=== PATIENT | male | born 1960 | race Caucasian/White ===

== ENCOUNTER → 2021-04-08 | Outpatient (CLI) | payer OTHER | LOC: ORTHO 11:35 | PROVIDERS: ATTEND Orthopaedic Surgery | DX: M16.11 Unilateral primary osteoarthritis, right hip (principal); Z86.14 Personal history of Methicillin resistant Staphylococcus aureus infection | CPT/HCPCS: 99203 ==

== ENCOUNTER → 2021-04-08 | Outpatient (CLI) | payer OTHER | LOC: LAB 11:55 | PROVIDERS: ATTEND Orthopaedic Surgery | DX: Z86.14 Personal history of Methicillin resistant Staphylococcus aureus infection (principal); Z11.2 Encounter for screening for other bacterial diseases | CPT/HCPCS: 87081 ==

== ENCOUNTER 2021-04-29 09:59 | Outpatient (CLI) | payer OTHER ==
[~2021-04-29] VITALS: Ht 175.3 cm; Wt 132.8 kg
[2021-04-29 10:09] VITALS: BP 143/81
[2021-04-29 10:49] LABS: BILIRUBIN,URINE NEGATIVE (NEGATIVE); CLARITY,URINE CLEAR; COLOR,URINE YELLOW; GLUCOSE, URINE (UA) NEGATIVE (NEGATIVE); KETONES,URINE NEGATIVE (NEGATIVE); LEUKOCYTE ESTERASE ,URINE NEGATIVE (NEGATIVE); NITRITE,URINE NEGATIVE (NEGATIVE); PH,URINE 5.5 (5-9); PROTEIN,URINE NEGATIVE (NEGATIVE)
[2021-04-29 10:51] LABS: BASOPHILS % (AUTO) 0 % (0-10); EOSINOPHILS # (AUTO) 0.4 10^3/uL (0.0-0.3); EOSINOPHILS % (AUTO) 8 % (0-10); HEMATOCRIT 42 % (40-54); HEMOGLOBIN 14.2 g/dL (13.3-17.7); LYMPHOCYTES % (AUTO) 21 % (12-44); MEAN CORPUSCULAR HEMOGLOBIN 30 pg (25-34); MEAN CORPUSCULAR HGB CONC 34 g/dL (32-36); MEAN CORPUSCULAR VOLUME 90 fL (80-99); MEAN PLATELET VOLUME 9.4 fL (9.0-12.2); MONOCYTES # (AUTO) 0.4 10^3/uL (0.0-1.0); MONOCYTES % (AUTO) 8 % (0-12); NEUTROPHILS # (AUTO) 2.9 10^3/uL (1.8-7.8); NEUTROPHILS % (AUTO) 62 % (42-75); PLATELET COUNT 235 10^3/uL (130-400); WHITE BLOOD COUNT 4.7 10^3/uL (4.3-11.0)
[2021-04-29 11:05] LABS: POTASSIUM 3.6 MMOL/L (3.6-5.0)
[2021-04-29 11:06] LABS: AMORPHOUS SEDIMENT,UR RARE AMOR URATES /LPF; BACTERIA,URINE NEGATIVE /HPF; CALCIUM 9.1 MG/DL (8.5-10.1); WBC,URINE RARE /HPF
[2021-04-29 11:11] LABS: CREATININE SERUM 0.84 MG/DL (0.60-1.30)
[2021-04-29] MEDS ORDERED: ELDE1CAP PO (11:13)
[2021-04-29] MEDS ORDERED: ASCO-262 PO (11:13)
[2021-04-29] MEDS ORDERED: CHOL500044 PO (11:13)
[2021-04-29] MEDS ORDERED: ZINC50TA11 PO (11:13)
[2021-04-29] MEDS ORDERED: LISI40TA9 PO (11:13)
[2021-04-29] MEDS ORDERED: OMG1KC PO (11:13)
--- NOTE | 2021-04-29 12:23 | Diagnostic Imaging Report ---
INDICATION: Preoperative screening. PA and lateral views were obtained. FINDINGS: The heart size, mediastinal configuration, and pulmonary vascularity are within normal limits. There is no pleural effusion, pneumothorax, or pneumonia. The osseous structures are unremarkable. IMPRESSION: No acute cardiopulmonary abnormality. Dictated by: Dictated on workstation # [id number]
== END 2021-04-29 11:31 | disposition home or self-care (01) ==
LOC: PREOP 09:59
PROVIDERS: ATTEND Orthopaedic Surgery
DX: Z01.810 Encounter for preprocedural cardiovascular examination (principal); M16.11 Unilateral primary osteoarthritis, right hip
CPT/HCPCS: 36415; 71046; 80048; 81000; 85025; 86850; 86900; 86901; 87081; 93005

== ENCOUNTER → 2021-04-29 | Outpatient (CLI) | payer OTHER ==
[~2021-04-29] MED LIST: ASCO-262 PO; CHOL500044 PO; ELDE1CAP PO; LISI40TA9 PO; OMG1KC PO; ZINC50TA11 PO
--- NOTE | 2021-04-29 14:36 | Diagnostic Imaging Report ---
INDICATION: Right hip pain COMPARISON: None. FINDINGS: 2 views right hip demonstrate severe degenerative joint disease. There is no fracture or dislocation. IMPRESSION: Severe degenerative joint disease. Dictated by: Dictated on workstation # [id number]
== END ==
LOC: ORTHO 11:22
PROVIDERS: ATTEND Orthopaedic Surgery
DX: M16.11 Unilateral primary osteoarthritis, right hip (principal)
CPT/HCPCS: 73502

== ENCOUNTER 2021-05-10 06:16 | Inpatient (IN) | payer OTHER ==
[2021-05-10] VITALS (11 sets, daily range): BP systolic 94–142; BP diastolic 56–82
[~2021-05-10] VITALS: Ht 175 cm; Wt 132.8 kg
[2021-05-10] MEDS ORDERED: ceFAZolin INJECTION 3,000 MG in NS (IVPB) 100 ML IV ONE (06:30)
[2021-05-10] MEDS ORDERED: ONDANSETRON 4 MG/2 ML (SDV) Z0FRAN ONE (07:16)
[2021-05-10] MEDS ORDERED: ROCURONIUM 10 MG/ML 5 ML SYRINGE IV ONE ×2 (07:16→11:45)
[2021-05-10] MEDS ORDERED: proPOfol 200 MG/20 ML (DIPRIVAN) VIAL IV ONE (07:16)
[2021-05-10] MEDS ORDERED: fentaNYL INJ 100 MCG/2 ML AMP ONE ×2 (07:17→09:59)
[2021-05-10] MEDS: LACTATED RINGERS 1,000 ML IV PRN ×4 (07:17→12:35)
[2021-05-10] MEDS ORDERED: LIDOCAINE PF 2% 5 ML (XYLOCAINE) VIAL ONE (07:17)
[2021-05-10] MEDS ORDERED: MIDAZOLAM 2 MG/2 ML (VERSED) VIAL ONE (07:17)
[2021-05-10] MEDS ORDERED: SODIUM CHLORIDE 0.9% IRRIGATIO 150 ML, TRANEXAMIC ACID INJECTION 3,000 MG IR ONE ×2 (08:15)
[2021-05-10] MEDS ORDERED: HYDROmorphone 2 MG/ML VIAL (DILAUDID) ONE (11:20)
[2021-05-10] MEDS ORDERED: ceFAZolin INJECTION 3,000 MG ONE (11:59)
[2021-05-10] MEDS ORDERED: BUPIVACAINE 0.25% 30 ML (SENSORCAINE) VIAL ONE (12:25)
[2021-05-10] MEDS ORDERED: GLYCOPYRROLATE 0.2 MG/ML (ROBINUL) 2 ML VIAL ONE (12:33)
[2021-05-10] MEDS ORDERED: NEOSTIGMINE 3 MG/3 ML VIAL ONE (12:33)
[2021-05-10] MEDS ORDERED: NALOXONE 0.4 MG/ML 1 ML (NARCAN) VIAL IV PRN (13:00)
[2021-05-10] MEDS ORDERED: morphine INJ 4 MG/ML 1 ML (VIAL/SYRINGE) IV PRN (13:00)
--- NOTE | 2021-05-10 13:06 | Operative Report - Ortho ---
Operative Report Surgeon (s)/Scout (s) Surgeon DOUGLAS VALDIVIA MD Scout n/a Pre-Operative Diagnosis Right Hip Primary Osteoarthritis Post-Operative Diagnosis same Operative Report Date of Procedure: May 10, 2021 Name of Procedure Performed: Right total hip arthroplasty Description & Findings After obtaining informed consent and marking the patient in the preoperative holding area, the patient did receive antibiotics and was taken to the operating room. General anesthesia was induced and patient was positioned in the lateral decubitus position with the right side up. Right lower extremity was prepped and draped in the usual sterile fashion. Surgical timeout was taken. Posterolateral approach was utilized. Capsule and external rotators were taken down in one layer. Hip was difficult to dislocate. A double osteotomy technique was used to remove the femoral head from the acetabulum. Acetabulum was exposed. Labrum and soft tissue was removed from the acetabulum. Sequential reaming was began beginning with a 50 mm reamer and reaming to a 56 mm. 56 mm trial was placed and had good fit. Trial was removed and the acetabulum was lavaged with normal saline; a 56 mm cup was impacted into place and had excellent press fit. A trial liner was put into place. Attention was turned to the femoral side, a Pitzi cutter osteotome was used to removed bone near the greater trochanter. Canal finder was inserted followed by the lateralizing reamer. Sequential broaching was began with a 0 and he was broached to a 4. Calcar planer was used. Trial 127 degree neck and -2.5 mm head were put into place. Hip was located and was found to have grossly equal leg lengths, stable in position of sleep, and stable in flexion and internal rotation. This was accepted. Hip was dislocated. Acetabulum was exposed. Trial line was removed and a polyethylene liner was locked into place; freer was used to check the locking mechanism. Attention was turned back to the femur, broach was removed and the canal was irrigated. A size 4 Accolade II was impacted into place and set at the same level as the broach. A -2.5 mm ceramic head was impacted onto the covarrubias taper of the stem. Hip was once again located and found to have grossly equal leg lengths with stability in position of sleep as well as flexion and internal rotation. A dilute betadine soak was performed followed by irrigation. Tranexamic acid was applied for hemostasis. The fascial layer was closed with #1 Ticron. The subcutaneous layer was closed with 2-0 Vicryl. Skin was closed with amber. Wound was dressed with xeroform, 4x4s, ABD, and paper tape. Patient was placed in abduction pillow and transferred to his hospital bed without difficulty and was stable to the recovery room. Anesthesia Type General Estimated Blood Loss 600 mL Specimen(s) collected/removed None DOUGLAS VALDIVIA MD May 10, 2021 13:06
[2021-05-10] MEDS ORDERED: PHENYLEPHRINE 100 MCG/ML 10 ML (ANESTHESIA) SYR ONE (13:26)
[2021-05-10] MEDS ORDERED: SEVOFLURANE (ULTANE) 15 ML INHAL SOLN ONE (13:26)
--- NOTE | 2021-05-10 13:35 | Diagnostic Imaging Report ---
INDICATION: Hip pain. FINDINGS: AP view of the pelvis shows postoperative changes from bilateral total hip arthroplasties. There is no evidence of loosening. Prosthesis appears secured. There is no acute fracture seen. IMPRESSION: Good alignment of the hips following joint arthroplasties. Dictated by: Dictated on workstation # [id number]
--- NOTE | 2021-05-10 14:09 | Anesthesia-General Post-Op ---
General Patient Condition Mental Status/LOC: Same as Preop Cardiovascular: Satisfactory Nausea/Vomiting: Absent Respiratory: Satisfactory Pain: Controlled Complications: Absent Post Op Complications Complications None Follow Up Care/Instructions Patient Instructions None needed. Anesthesia/Patient Condition Patient Condition Patient is doing well, no complaints, stable vital signs, no apparent adverse anesthesia problems. No complications reported per nursing. CORA KHAN CRNA May 10, 2021 14:09
[2021-05-10] MEDS ORDERED: fentaNYL INJ 100 MCG/2 ML AMP IVP ONE (14:15)
[2021-05-10] MEDS ORDERED: ONDANSETRON 4 MG/2 ML (SDV) Z0FRAN IVP PRN (14:15)
[2021-05-10] MEDS ORDERED: morphine INJ 10 MG/ML 1ML (SYR OR VIAL) IVP ONE (14:15)
[2021-05-10] MEDS ORDERED: morphine INJ 4 MG/ML 1 ML (VIAL/SYRINGE) ONE (14:29)
[2021-05-10] MEDS ORDERED: IBUP-2473 PO (15:01)
[2021-05-10] MEDS: ceFAZolin 2 GM IV Premixed 50 ML IV SCH ×2 (17:12→22:50)
[2021-05-10] MEDS: ASPIRIN E.C. 81 MG (ECOTRIN) TAB PO SCH (19:32)
[2021-05-10] MEDS: CELECOXIB 100 MG (CeleBREX) CAP PO SCH (19:32)
[2021-05-11 04:05] VITALS: BP 92/63
[2021-05-11 06:00] LABS: HEMOGLOBIN 11.3 g/dL (13.3-17.7)
[2021-05-11] MEDS: ASCORBIC ACID (VIT C) 500 MG TABLET PO SCH (06:03)
[2021-05-11 07:43] VITALS: BP 101/59
[2021-05-11] MEDS: CELECOXIB 100 MG (CeleBREX) CAP PO SCH ×2 (08:17→18:43)
[2021-05-11] MEDS: ceFAZolin 2 GM IV Premixed 50 ML IV SCH (08:17)
[2021-05-11] MEDS: ASPIRIN E.C. 81 MG (ECOTRIN) TAB PO SCH ×2 (08:17→20:42)
[2021-05-11] MEDS: lisINopril 40 MG (PRINIVIL) TABLET PO SCH (08:17)
[2021-05-11] MEDS: VITAMIN D3 125 MCG (5,000 UNITS) CAPSULE PO SCH (08:17)
--- NOTE | 2021-05-11 08:34 | Progress Note - Ortho ---
Progress Note Subjective Date of Exam 05/11/21 Chief Complaint Right Hip Pain HPI/Events since last exam POD #1 Right Total Hip Arthroplasty doing well, pain controlled, has walked in the [place] this AM Review of Systems not obtained Allergies: Coded Allergies: adhesive tape (Verified Allergy, Unknown, Rash, 04/29/21) Home Meds Reported Medications Ibuprofen (Ibuprofen) 200 Mg Tablet, 600 MG PO Q6H PRN for PAIN-MILD (1-4), TAB 05/10/21 Zinc Gluconate (Zinc) 50 Mg Tablet, 50 MG PO DAILY, TAB 04/29/21 Cholecalciferol (Vitamin D3) (Vitamin D3) 125 Mcg Tablet, 125 MCG PO DAILY, TAB 04/29/21 Ascorbate Calcium (Vitamin C) 500 Mg Tablet, 500 MG PO DAILY, TAB 04/29/21 Lisinopril (Lisinopril) 40 Mg Tablet, 40 MG PO DAILY, TAB 04/29/21 [place] 3 Polyunsat Fatty Acids (Fish Oil 1,000 mg Capsule) 1,000 Mg Cap, 1000 MG PO DAILY, CAP 04/29/21 Elderberry Fruit and Flower (Black Elderberry 575 mg Cap) 1 Each Capsule, 1 EACH PO DAILY, CAP 04/29/21 Objective Exam Right Hip: Dressing C/D/I, +DF of ankle, no s/s of DVT Vital Signs Vital Signs Date Time Temp Pulse Resp B/P (MAP) Pulse Ox O2 Delivery O2 Flow Rate FiO2 05/11/21 07:43 36.9 66 18 101/59 (73) 95 Room Air 05/11/21 04:05 36.8 73 18 92/63 (73) 95 Room Air 05/10/21 23:39 36.9 77 18 103/56 (72) 92 Room Air 05/10/21 21:00 37.3 78 18 112/58 (76) 93 Room Air 05/10/21 19:40 Room Air 05/10/21 17:09 Room Air 05/10/21 16:05 36.6 75 18 129/68 (88) 94 Room Air 05/10/21 14:52 35.4 77 18 118/72 (87) 95 Room Air 05/10/21 13:45 Room Air 05/10/21 13:45 36.2 16 138/77 (97) 97 Room Air 05/10/21 13:40 18 136/76 (96) 97 Nasal Cannula 2 05/10/21 13:30 18 130/78 (95) 94 OxyMask 2 05/10/21 13:30 OxyMask 2 05/10/21 13:20 16 142/82 (102) 98 OxyMask 3 05/10/21 13:15 OxyMask 6 05/10/21 13:10 16 127/79 (95) 98 OxyMask 6 05/10/21 13:05 OxyMask 15 05/10/21 13:00 16 109/63 (78) 100 OxyMask 15 05/10/21 12:51 OxyMask 15 05/10/21 12:51 36.5 16 94/64 (74) 97 OxyMask 15 I & O 05/11/21 07:00 Intake Total 4095 ml Output Total 1125 ml Balance 2970 ml Lab Results Laboratory Tests 05/11/21 05:10: Hemoglobin 11.3L, Hematocrit 35L Imaging AP pelvis from 05/10/21 reviewed from PACS and demonstrated right total hip arthroplasty components to be in good position without complication, prior left total hip arthroplasty intact as well Assessment and Plan Assessment Post Op Problem List Post Op Plan Cont PT/OT DVT prophylaxis Plan for home with home health on Final Diagonsis Z09 Post Op Level of the visit: Level 3 (global) DOUGLAS VALDIVIA MD May 11, 2021 08:34
[2021-05-11] MEDS ORDERED: NON-FORMULARY MEDICATION 1 EA EA (Ascorbate Calcium (Vitamin C) 500 MG) PO SCH (09:00)
--- NOTE | 2021-05-11 09:55 | Physical Therapy Evaluation ---
PT Evaluation-General Medical Diagnosis Admission Date May 10, 2021 at 06:16 Medical Diagnosis: right THR Onset Date: May 10, 2021 Therapy Diagnosis Therapy Diagnosis: debility/weakness Weight Bear Status Right Lower Extremity: Right Weight Bearing/Tolerated Left Lower Extremity: Left Full Weight Bearing Posterolateral dislocation precautions Referral Physician: Josué Reason for Referral: Evaluation/Treatment Medical History Additional Medical History left THR Current History s/p elective right THR Reviewed History: Yes Social History Home: Single Level Current Living Status: Spouse Prior Prior Level of Function SCALE: Activities may be completed with or without assistive devices. 5-Dxovlmjryx-tsfqmzs completes the activity by him/herself with no assistance from a helper. 5-Set-up or Clean-up Assistance-helper sets up or cleans up; patient completes activity. [place] assists only prior to or following the activity. 4-Supervision or Touching Assistance-helper provides verbal cues and/or touching/steadying and/or contact guard assistance as patient completes activity. Assistance may be provided throughout the activity or intermittently. 3-Partial/Moderate Assistance-helper does LESS THAN HALF the effort. [place] lifts, holds or supports trunk or limbs, but provides less than half the effort. 2-Substantial/Maximal Assistance-helper does MORE THAN HALF the effort. [place] lifts or holds trunk or limbs and provides more than half the effort. 0-Mcspeifgr-wjmpps does ALL the effort. Patient does none of the effort to complete the activity. Or, the assistance of 2 or more helpers is required for the patient to complete the activity. If activity was not attempted, code reason: 7-Patient Refused. 9-Not Applicable-not attempted and the patient did not perform the activity before the current illness, exacerbation or injury. 10-Not Attempted due to Environmental Limitations-(lack of equipment, weather restraints, etc.). 88-Not Attempted due to Medical Conditions or Safety Concerns. Bed Mobility: 6 Transfers (B,C,W/C): 6 Gait: 6 Stairs: 6 Indoor Mobility (Ambulation): Independent Stairs: Independent Prior Devices Use: None PT Evaluation-Current Subjective Patient agrees to PT. Pain Numeric Pain Scale: 5-Moderate Pain Location: Right Location Body Site: Hip Pain Description: Acute Objective Patient Orientation: Normal For Age Attachments: Love Catheter ROM/Strength ROM Lower Extremities right hip precautions/left LE WFL Strength Lower Extremities right LE 3+/5 grossly/left LE 5/5 grossly Integumentary/Posture Integumentary refer to nursing notes Bladder Incontinence: Love Cath Posture WFL Neuromuscular (Tone, Coordination, Reflexes) grossly intact Sensory Vision: Functional Hearing: Functional Transfers Roll Left to Right (QC): 6 Lying to Sitting/Side of Bed(Q: 6 Sit to Stand (QC): 4 Chair/Fob-dm-Mbqla Xfer(QC): 4 Gait Does the Patient Walk?: Yes Mode of Locomotion: Walk Anticipated Mode of Locomotion: Walk Walk 10 feet (QC): 4 Walk 50 ft with 2 Turns(QC): 4 Walk 150 ft (QC): 4 Distance: 200' Gait Assistive Device: FWW Comments/Gait Description steady, functional gait sequence Wheelchair Training Does the Pt Use a Wheelchair?: No Balance Sitting Static: Normal Sitting Dynamic: Normal Standing Static: Normal Standing Dynamic: Normal Assessment/Needs 61 y.o. male, will be seen short term by skilled PT to address functional strength and mobility to ensure safe return to home at maximum LOF. Rehab Potential: Good PT Assignment Clerk Goals Assignment Clerk Goals PT Custodial Goals Time Frame: May 14, 2021 Roll Left & Right (QC): 6 Sit to Lying (QC): 6 Lying-Sitting on Side/Bed(QC): 6 Sit to Stand (QC): 6 Chair/Kgp-gu-Vaxlo Xfer(QC): 6 Toilet Transfer (QC): 6 Walk 10 feet (QC): 6 Walk 50ft with 2 Turns (QC): 6 Walk 150 ft (QC): 6 Walking 10ft on Uneven Surface: 6 1 Step (curb) (QC): 6 4 Steps (QC): 6 PT Plan Treatment/Plan Treatment Plan: Continue Plan of Care Treatment Plan: Bed Mobility, Education, Functional Activity Rafat, Functional Strength, Gait, Safety, Therapeutic Exercise, Transfers Treatment Duration: May 14, 2021 Frequency: 7 times per week Estimated Hrs Per Day: .5 hour per day Patient and/or Family Agrees t: Yes Discharge Recommendations Therapy Discharge Recommendati: Home & Family Time/GCodes Time In: 730 Time Out: 758 Total Billed Treatment Time: 28 Total Billed Treatment 1 visit EVModC 12 min GT 16 min ANNE REED PT May 11, 2021 09:55
[2021-05-11 11:31] VITALS: BP 120/56
--- NOTE | 2021-05-11 11:59 | Occupational Therapy Eval ---
OT Evaluation-General/PLF Medical Diagnosis Admission Date May 10, 2021 at 06:16 Medical Diagnosis: right THR Onset Date: May 10, 2021 Therapy Diagnosis Therapy Diagnosis: decreased ADL Status Precautions Comments hip precautions Weight Bear Status Weight Bearing Restriction: Weight Bearing/Tolerated Location Restriction: R LE Referral Physician: Josué Referral Reason: Evaluation/Treatment Medical History Current History s/p R MANNY 05/10/21 Social History Home: Single Level Current Living Status: Spouse ADL-Prior Level of Function SCALE: Activities may be completed with or without assistive devices. 7-Cmdwcestdm-ojbapdt completes the activity by him/herself with no assistance from a helper. 5-Set-up or Clean-up Assistance-helper sets up or cleans up; patient completes activity. [place] assists only prior to or following the activity. 4-Supervision or Touching Assistance-helper provides verbal cues and/or touching/steadying and/or contact guard assistance as patient completes activity. Assistance may be provided throughout the activity or intermittently. 3-Partial/Moderate Assistance-helper does LESS THAN HALF the effort. [place] lifts, holds or supports trunk or limbs, but provides less than half the effort. 2-Substantial/Maximal Assistance-helper does MORE THAN HALF the effort. [place] lifts or holds trunk or limbs and provides more than half the effort. 8-Rdvjkqdxz-vwumoy does ALL the effort. Patient does none of the effort to complete the activity. Or, the assistance of 2 or more helpers is required for the patient to complete the activity. If activity was not attempted, code reason: 7-Patient Refused. 9-Not Applicable-not attempted and the patient did not perform the activity before the current illness, exacerbation or injury. 10-Not Attempted due to Environmental Limitations-(lack of equipment, weather restraints, etc.). 88-Not Attempted due to Medical Conditions or Safety Concerns. ADL PLOF Comments Pt reports IND with ADLs at PLOF. He has a walk in shower, shower chair available. He owns AE for LE dressing, and is familiar with them due to having his L hip replaced in the past. Self Care: Independent Functional Cognition: Independent DME/Equipment: Bath Chair, Shower OT Current Status Subjective Pt laying in bed, agreeable to OT evaluation/tx. Mental Status/Objective Patient Orientation: Person, Place, Time, Situation Current Upper Extremity ROM WFL, BUE shoulder flexion to approx 160 degrees Upper Extremity Coordination WFL Upper Extremity Sensation WFL Upper Extremity Strength grossly 4/5 ADL-Treatment Eating (QC): 6 (per pt report) Oral Hygiene (QC): 5 (based on clincial judgement.) Toileting Hygiene (QC): 7 Other Treatments Pt in bed, OT educated pt on purpose and benefit of OT, he verbalized understanding. Pt provided information about PLOF and home set up, and part icipated in UE screen. Pt declined ADLs at this time, agreeable to BUE exercises in order to increase strength, and activity tolerance. Pt completed x10 reps each of the following: shoulder flexion, elbow flexion, elbow extension, horizontal abduction. Pt encouraged to complete exercises throughout the day,he verbalized understanding. Per PT evaluation, pt ambulated 200' with FWW QC score 4, he is independent with rolling, and lying to sit side of bed. Requires QC 4 for sit to stand and bed to chair transfer.Post tx, pt in bed, call light in reach and all needs met. Education OT Patient Education: Correct positioning, Energy conservation, Exercise program, Modified ADL techniques, Progress toward Goal/Update tx plan, Purpose of tx/functional activities, Rehab process Teaching Recipient: Patient Teaching Methods: Discussion Response to Teaching: Verbalize Understanding OT Intermediate Goals Intermediate Goals Time Frame: May 19, 2021 Eating (QC): 6 Oral Hygiene (QC): 6 Toileting Hygiene (QC): 6 Shower/Bathe Self (QC): 5 Upper Body Dressing (QC): 6 Lower Body Dressing (QC): 6 On/Off Footwear (QC): 6 1=Demonstrate adherence to instructed precautions during ADL tasks. 2=Patient will verbalize/demonstrate understanding of assistive devices/modifications for ADL. 3=Patient will improve strength/tolerance for activity to enable patient to perform ADL's. OT Education/Plan Problem List/Assessment Assessment: Decreased Activ Tolerance, Decreased UE Strength, Impaired Funct Balance, Impaired I ADL's, Impaired Self-Care Skills Discharge Recommendations Plan/Recommendations: Continue POC Treatment Plan/Plan of Care Patient would benefit from OT for education, treatment and training to promote independence in ADL's, mobility, safety and/or upper extremity function for ADL's. Plan of Care: ADL Retraining, Functional Mobility, UE Funct Exercise/Act Treatment Duration: May 19, 2021 Frequency: 5 times per week Estimated Hrs Per Day: .25 hour per day Rehab Potential: Good Time/GCodes Start Time: 11:06 Stop Time: 11:15 Total Time Billed (hr/min): 9 Billed Treatment Time 1, NEEL VALDEZ OT May 11, 2021 11:59
--- NOTE | 2021-05-11 13:53 | Physical Therapy Daily Note ---
PT Daily Note-Current Subjective Patient agrees to PT. Pain Numeric Pain Scale: 5-Moderate Pain Location: Right Location Body Site: Hip Pain Description: Acute Mental Status Patient Orientation: Normal For Age Transfers SCALE: Activities may be completed with or without assistive devices. 4-Loufsvdjtb-awsulnu completes the activity by him/herself with no assistance from a helper. 5-Set-up or Clean-up Assistance-helper sets up or cleans up; patient completes activity. [place] assists only prior to or following the activity. 4-Supervision or Touching Assistance-helper provides verbal cues and/or touching/steadying and/or contact guard assistance as patient completes activity. Assistance may be provided throughout the activity or intermittently. 3-Partial/Moderate Assistance-helper does LESS THAN HALF the effort. [place] lifts, holds or supports trunk or limbs, but provides less than half the effort. 2-Substantial/Maximal Assistance-helper does MORE THAN HALF the effort. [place] lifts or holds trunk or limbs and provides more than half the effort. 9-Vzhkdqmey-fhqvpd does ALL the effort. Patient does none of the effort to complete the activity. Or, the assistance of 2 or more helpers is required for the patient to complete the activity. If activity was not attempted, code reason: 7-Patient Refused. 9-Not Applicable-not attempted and the patient did not perform the activity before the current illness, exacerbation or injury. 10-Not Attempted due to Environmental Limitations-(lack of equipment, weather restraints, etc.). 88-Not Attempted due to Medical Conditions or Safety Concerns. Lying to Sitting/Side of Bed(Q: 6 Sit to Stand (QC): 6 Chair/Qrn-xe-Gvvgs Xfer(QC): 6 Weight Bearing Right Lower Extremity: Right Weight Bearing/Tolerated Left Lower Extremity: Left Full Weight Bearing Posterolateral dislocation precautions Gait Training Does the Patient Walk?: Yes Distance: 300' Walk 10 feet (QC): 6 Walk 50 ft with 2 Turns(QC): 6 Walk 150 ft (QC): 6 Walking 10ft/uneven surface-QC: 6 Gait Assistive Device: FWW safe and functional/no deviation Stair Training Stair Training: Handrails/: 2 handrails #of Steps: 4 1 Step (curb) (QC): 6 4 Steps (QC): 6 Stairs: Pattern: Step to Exercises Supine Ex: Ankle pumps, Quad Set, Heel Slides Supine Reps: 10 Seated Therapy Exercises: Long arc quads Seated Reps: 15 Assessment Patient instructed to be up ad kimberly in room and hallway. RN notified. Patient up in hip chair. Reviewed hip precautions. PT Bowling Ball Grader Goals Bowling Ball Grader Goals PT Bowling Ball Grader Goals Time Frame: May 14, 2021 Roll Left & Right (QC): 6 Sit to Lying (QC): 6 Lying-Sitting on Side/Bed(QC): 6 Sit to Stand (QC): 6 Chair/Dta-io-Kmrqu Xfer(QC): 6 Toilet Transfer (QC): 6 Walk 10 feet (QC): 6 Walk 50ft with 2 Turns (QC): 6 Walk 150 ft (QC): 6 Walking 10ft on Uneven Surface: 6 1 Step (curb) (QC): 6 4 Steps (QC): 6 PT Plan Treatment/Plan Treatment Plan: Continue Plan of Care Treatment Plan: Bed Mobility, Education, Functional Activity Rafat, Functional Strength, Gait, Safety, Therapeutic Exercise, Transfers Treatment Duration: May 14, 2021 Frequency: 7 times per week Estimated Hrs Per Day: .5 hour per day Patient and/or Family Agrees t: Yes Time/GCodes Time In: 1311 Time Out: 1324 Total Billed Treatment Time: 13 Total Billed Treatment 1 visit FA 13 min ANNE REED PT May 11, 2021 13:53
[2021-05-11 15:46] VITALS: BP 101/64
[2021-05-11 20:01] VITALS: BP 121/70
[2021-05-12 00:04] VITALS: BP 106/63
[2021-05-12 04:12] VITALS: BP 112/72
[2021-05-12 05:37] LABS: HEMOGLOBIN 11.3 g/dL (13.3-17.7)
[2021-05-12] MEDS: ASCORBIC ACID (VIT C) 500 MG TABLET PO SCH (06:31)
[2021-05-12 08:00] VITALS: BP 131/97
[2021-05-12] MEDS: ASPIRIN E.C. 81 MG (ECOTRIN) TAB PO SCH ×2 (08:30→20:44)
[2021-05-12] MEDS: lisINopril 40 MG (PRINIVIL) TABLET PO SCH (08:30)
[2021-05-12] MEDS: VITAMIN D3 125 MCG (5,000 UNITS) CAPSULE PO SCH (08:30)
[2021-05-12] MEDS: CELECOXIB 100 MG (CeleBREX) CAP PO SCH ×2 (08:30→17:37)
--- NOTE | 2021-05-12 08:48 | Physical Therapy Daily Note ---
PT Daily Note-Current Subjective Patient in bed pre tx, agrees to PT, has 4/10 pain in right hip. Appearance Patient in bed post tx with nurse call, phone, tray, all needs met. Mental Status Patient Orientation: Person, Place, Situation Transfers SCALE: Activities may be completed with or without assistive devices. 2-Hryfsxrsts-kzoqdsy completes the activity by him/herself with no assistance from a helper. 5-Set-up or Clean-up Assistance-helper sets up or cleans up; patient completes activity. [place] assists only prior to or following the activity. 4-Supervision or Touching Assistance-helper provides verbal cues and/or touching/steadying and/or contact guard assistance as patient completes activity. Assistance may be provided throughout the activity or intermittently. 3-Partial/Moderate Assistance-helper does LESS THAN HALF the effort. [place] lifts, holds or supports trunk or limbs, but provides less than half the effort. 2-Substantial/Maximal Assistance-helper does MORE THAN HALF the effort. [place] l ifts or holds trunk or limbs and provides more than half the effort. 1-Omaqzzjyx-zlyjwz does ALL the effort. Patient does none of the effort to complete the activity. Or, the assistance of 2 or more helpers is required for the patient to complete the activity. If activity was not attempted, code reason: 7-Patient Refused. 9-Not Applicable-not attempted and the patient did not perform the activity before the current illness, exacerbation or injury. 10-Not Attempted due to Environmental Limitations-(lack of equipment, weather restraints, etc.). 88-Not Attempted due to Medical Conditions or Safety Concerns. Roll Left & Right (QC): 6 Sit to Lying (QC): 6 Lying to Sitting/Side of Bed(Q: 6 Sit to Stand (QC): 6 Chair/Ujo-vv-Xbzfv Xfer(QC): 6 Weight Bearing Right Lower Extremity: Right Weight Bearing/Tolerated Left Lower Extremity: Left Full Weight Bearing Posterolateral dislocation precautions Gait Training Distance: 300' Walk 10 feet (QC): 6 Walk 50 ft with 2 Turns(QC): 6 Walk 150 ft (QC): 6 Gait Assistive Device: FWW slow but steady ambulation Exercises Supine Ex: Quad Set, Glut sets Supine Reps: 20 Seated Therapy Exercises: Ankle pumps, Long arc quads Seated Reps: 20 (RLE) Treatments bed mobility and transfers, ambulation, LE strengthening Assessment Current Status: Fair Progress patient is independent with transfers and ambulation PT Merchandising Consultant Goals [facility] Goals PT [facility] Goals Time Frame: May 14, 2021 Roll Left & Right (QC): 6 Sit to Lying (QC): 6 Lying-Sitting on Side/Bed(QC): 6 Sit to Stand (QC): 6 Chair/Mpo-sk-Mnehx Xfer(QC): 6 Toilet Transfer (QC): 6 Walk 10 feet (QC): 6 Walk 50ft with 2 Turns (QC): 6 Walk 150 ft (QC): 6 Walking 10ft on Uneven Surface: 6 1 Step (curb) (QC): 6 4 Steps (QC): 6 PT Plan Problem List Problem List: Activity Tolerance, Functional Strength, Safety, Balance, Gait, Transfer Treatment/Plan Treatment Plan: Continue Plan of Care Treatment Plan: Bed Mobility, Education, Functional Activity Rafat, Functional Strength, Gait, Safety, Therapeutic Exercise, Transfers Treatment Duration: May 14, 2021 Frequency: 7 times per week Estimated Hrs Per Day: .5 hour per day Patient and/or Family Agrees t: Yes Safety Risks/Education Patient Education: Gait Training, Transfer Techniques, Correct Positioning, Safety Issues Teaching Recipient: Patient Teaching Methods: Demonstration, Discussion Response to Teaching: Reinforcement Needed Time/GCodes Time In: 820 Time Out: 830 Total Billed Treatment Time: 10 Total Billed Treatment 1 visit GT 10BILL COREY PT May 12, 2021 08:48
--- NOTE | 2021-05-12 11:16 | Progress Note - Ortho ---
Progress Note Subjective Date of Exam 05/12/21 Chief Complaint None HPI/Events since last exam Ortho POD #2 s/p R MANNY doing well, pain controlled with oral medication, making progress with therapy Review of Systems not obtained Allergies: Coded Allergies: adhesive tape (Verified Allergy, Unknown, Rash, 04/29/21) Home Meds Reported Medications Ibuprofen (Ibuprofen) 200 Mg Tablet, 600 MG PO Q6H PRN for PAIN-MILD (1-4), TAB 05/10/21 Zinc Gluconate (Zinc) 50 Mg Tablet, 50 MG PO DAILY, TAB 04/29/21 Cholecalciferol (Vitamin D3) (Vitamin D3) 125 Mcg Tablet, 125 MCG PO DAILY, TAB 04/29/21 Ascorbate Calcium (Vitamin C) 500 Mg Tablet, 500 MG PO DAILY, TAB 04/29/21 Lisinopril (Lisinopril) 40 Mg Tablet, 40 MG PO DAILY, TAB 04/29/21 [place] 3 Polyunsat Fatty Acids (Fish Oil 1,000 mg Capsule) 1,000 Mg Cap, 1000 MG PO DAILY, CAP 04/29/21 Elderberry Fruit and Flower (Black Elderberry 575 mg Cap) 1 Each Capsule, 1 EACH PO DAILY, CAP 04/29/21 Objective Exam R Hip: Dressing C/D/I, +DF of ankle, no s/s of DVT Vital Signs Vital Signs Date Time Temp Pulse Resp B/P (MAP) Pulse Ox O2 Delivery O2 Flow Rate FiO2 05/12/21 08:00 Room Air 05/12/21 08:00 36.5 87 20 131/97 (108) 90 Room Air 05/12/21 04:12 36.6 76 16 112/72 (85) 97 Room Air 05/12/21 00:04 36.8 72 18 106/63 (77) 93 Room Air 05/11/21 20:01 36.9 80 20 121/70 (87) 95 Room Air 05/11/21 20:00 Room Air 05/11/21 15:46 36.7 70 18 101/64 (76) 95 Room Air 05/11/21 11:31 36.8 73 18 120/56 (77) 97 Room Air I & O 05/12/21 07:00 Intake Total 2140 ml Output Total 600 ml Balance 1540 ml Lab Results Laboratory Tests 05/12/21 05:30: Hemoglobin 11.3L, Hematocrit 35L Assessment and Plan Assessment Post Op R MANNY Problem List Post Op R MANNY Plan Cont PT/OT DVT Prophylaxis Dressing Change Plan for home tomorrow with home health Final Diagonsis Post Op R MANNY Level of the visit: Level 3 (global) DOUGLAS VALDIVIA MD May 12, 2021 11:16
--- NOTE | 2021-05-12 13:54 | Physical Therapy Daily Note ---
PT Daily Note-Current Subjective Patient in bed pre tx, agrees to PT, has 2/10 right hip pain. Appearance Patient in bed post tx with nurse call phone, tray, all needs met. Mental Status Patient Orientation: Person, Place, Situation Transfers SCALE: Activities may be completed with or without assistive devices. 5-Xxpahpnrom-iklexkm completes the activity by him/herself with no assistance from a helper. 5-Set-up or Clean-up Assistance-helper sets up or cleans up; patient completes activity. [place] assists only prior to or following the activity. 4-Supervision or Touching Assistance-helper provides verbal cues and/or touching/steadying and/or contact guard assistance as patient completes activity. Assistance may be provided throughout the activity or intermittently. 3-Partial/Moderate Assistance-helper does LESS THAN HALF the effort. [place] lifts, holds or supports trunk or limbs, but provides less than half the effort. 2-Substantial/Maximal Assistance-helper does MORE THAN HALF the effort. [place] lifts or holds trunk or limbs and provides more than half the effort. 9-Mtnrakepc-lzjtuk does ALL the effort. Patient does none of the effort to complete the activity. Or, the assistance of 2 or more helpers is required for the patient to complete the activity. If activity was not attempted, code reason: 7-Patient Refused. 9-Not Applicable-not attempted and the patient did not perform the activity before the current illness, exacerbation or injury. 10-Not Attempted due to Environmental Limitations-(lack of equipment, weather restraints, etc.). 88-Not Attempted due to Medical Conditions or Safety Concerns. Roll Left & Right (QC): 6 Sit to Lying (QC): 6 Lying to Sitting/Side of Bed(Q: 6 Sit to Stand (QC): 6 Chair/Xfo-gw-Hiclg Xfer(QC): 6 Weight Bearing Right Lower Extremity: Right Weight Bearing/Tolerated Left Lower Extremity: Left Full Weight Bearing Posterolateral dislocation precautions Gait Training Distance: 300' Walk 10 feet (QC): 6 Walk 50 ft with 2 Turns(QC): 6 Walk 150 ft (QC): 6 Gait Assistive Device: FWW slow but steady ambulation Exercises Seated Therapy Exercises: Ankle pumps, Long arc quads Seated Reps: 20 Treatments bed mobility and transfers, ambulation, LE strengthening Assessment Current Status: Fair Progress independent with mobility PT Prison Goals Prison Goals PT Prison Goals Time Frame: May 14, 2021 Roll Left & Right (QC): 6 Sit to Lying (QC): 6 Lying-Sitting on Side/Bed(QC): 6 Sit to Stand (QC): 6 Chair/Rzw-vq-Dcnlc Xfer(QC): 6 Toilet Transfer (QC): 6 Walk 10 feet (QC): 6 Walk 50ft with 2 Turns (QC): 6 Walk 150 ft (QC): 6 Walking 10ft on Uneven Surface: 6 1 Step (curb) (QC): 6 4 Steps (QC): 6 PT Plan Problem List Problem List: Activity Tolerance, Functional Strength, Safety, Balance, Gait, Transfer, ROM Treatment/Plan Treatment Plan: Continue Plan of Care Treatment Plan: Bed Mobility, Education, Functional Activity Rafat, Functional Strength, Gait, Safety, Therapeutic Exercise, Transfers Treatment Duration: May 14, 2021 Frequency: 7 times per week Estimated Hrs Per Day: .5 hour per day Patient and/or Family Agrees t: Yes Safety Risks/Education Patient Education: Gait Training, Transfer Techniques, Correct Positioning, Safety Issues Teaching Recipient: Patient Teaching Methods: Demonstration, Discussion Response to Teaching: Reinforcement Needed Time/GCodes Time In: 1331 Time Out: 1342 Total Billed Treatment Time: 11 Total Billed Treatment 1 visit GT BILL DRUMMOND PT May 12, 2021 13:54
--- NOTE | 2021-05-12 14:51 | Occ Therapy Progress Note ---
Therapy Progress Note OT visited with pt, he states he has no concerns with ability to complete ADLs. He has been up independently in his room using FWW, independent with toileting and oral care. He states he doesn't have any issues with bathing/dressing, has all AE needed at his house in order to maintain hip precautions with LE dressing. Per PT note, pt is currently independent with functional mobility using FWW, x300'. No further skilled OT services indicated at this time, as pt is independent with ADL and functional mobility, and is at his PLOF. Pt also declined further OT services. D/C from OT. 1, visit 1440 NEEL NORWOOD OT May 12, 2021 14:51
[2021-05-12 16:00] VITALS: BP 127/81
[2021-05-13 00:06] VITALS: BP 127/83
[2021-05-13] MEDS: ASCORBIC ACID (VIT C) 500 MG TABLET PO SCH (04:49)
[2021-05-13 05:49] LABS: HEMOGLOBIN 12.2 g/dL (13.3-17.7)
[2021-05-13 08:10] VITALS: BP 134/77
[2021-05-13] MEDS ORDERED: ASPI-1238 PO (08:25)
[2021-05-13] MEDS ORDERED: OXC5T PO (08:25)
[2021-05-13] MEDS: VITAMIN D3 125 MCG (5,000 UNITS) CAPSULE PO SCH (08:38)
[2021-05-13] MEDS: CELECOXIB 100 MG (CeleBREX) CAP PO SCH (08:38)
[2021-05-13] MEDS: lisINopril 40 MG (PRINIVIL) TABLET PO SCH (08:39)
[2021-05-13] MEDS: ASPIRIN E.C. 81 MG (ECOTRIN) TAB PO SCH (08:39)
--- NOTE | 2021-05-13 08:58 | Discharge Summary ---
Discharge Summary Hospital Course Hospital Course Date of Admission: May 10, 2021 at 06:16 Admission Diagnosis : Family Physician/Provider: Date of Discharge: 05/13/21 Discharge Diagnosis: [Right Hip Primary Osteoarthritis] Hospital Course: [On 05/10/21, patient was admitted and underwent right total hip arthroplasty. Tolerated the procedure well. He was admitted to the regular floor. On the night of surgery, he did begin mechanical and chemical DVT prophylaxis. On POD #1, he began to work with therapy and did well. His pain was controlled on oral pain medication. On POD #2, he continued to make good progress with mobility. Home health arrangements were made. On POD #3, he was transitioning positions independently and ambulating with walker in hallways; he was ready for discharge home. ] Labs and Pending Lab Test: Laboratory Tests 05/13/21 05:37: Hemoglobin 12.2L, Hematocrit 37L Home Meds Active Oxyir Tablet (Oxycodone HCl) 5 Mg Tab 5 Mg PO Q4HR PRN 7 Days Aspirin EC (Aspirin) 81 Mg Tablet.dr 81 Mg PO BID 35 Days Reported Ibuprofen 200 Mg Tablet 600 Mg PO Q6H PRN Zinc (Zinc Gluconate) 50 Mg Tablet 50 Mg PO DAILY Vitamin D3 (Cholecalciferol (Vitamin D3)) 125 Mcg Tablet 125 Mcg PO DAILY Vitamin C (Ascorbate Calcium) 500 Mg Tablet 500 Mg PO DAILY Lisinopril 40 Mg Tablet 40 Mg PO DAILY Fish Oil 1,000 mg Capsule ([place] 3 Polyunsat Fatty Acids) 1,000 Mg Cap 1,000 Mg PO DAILY Black Elderberry 575 mg Cap (Elderberry Fruit and Flower) 1 Each Capsule 1 Each PO DAILY Assessment/Pt Instructions Post Op Right MANNY Remain WBAT with use of walker. Adhere to posterolateral dislocation precautions. Dry dressing daily to right hip. Home health physical therapy for ROM, strengthening and gait training. Discharge Instructions Discharge Diet: Regular Diet Discharge Physical Examination Vital Signs Vital Signs Date Time Temp Pulse Resp B/P (MAP) Pulse Ox O2 Delivery O2 Flow Rate FiO2 05/13/21 08:10 36.2 80 18 134/77 (96) 95 Room Air 05/10/21 13:40 2 Extremity: Other (Incision clean and intact, 2 areas of small serosanguinous drainage, no s/s of DVT, able to DF ankle) Allergies: Coded Allergies: adhesive tape (Verified Allergy, Unknown, Rash, 04/29/21) Discharge Summary Date of Admission May 10, 2021 at 06:16 Date of Discharge DOUGLAS VALDIVIA MD May 13, 2021 08:55
--- NOTE | 2021-05-13 09:49 | D/C HH Face to Face Order ---
D/C Face to Face Orders Instructions for Patient [facility], Patient Instructions/FollowUp: WBAT on right leg. Walker for assist. Posterior dislocation precautions. Home health therapy for ROM, strengthening, gait training. Physician to follow Patient: 2 weeks Discharge Diet for Home: Regular Diet Patient Data-Allergies,Ht & Wt Patient Allergies: Coded Allergies: adhesive tape (Verified Allergy, Unknown, Rash, 04/29/21) Home Health Need/Face to Face Date of Face to Face: May 13, 2021 Clinical Findings: Muscle weakness, Pain with ambulation, Unsteady gait I have seen Pt toqb-fl-nsfg: Yes Discharged To: Home Diagnosis/Conditions: s/p Right total hip arthroplasty Patient is Homebound due to: Muscle weakness, Pain w/ambulation Homebound Status Due to the above stated illness, injury or surgical procedure (medical condition or diagnosis) and associated clinical findings, the patient is homebound because of his/her inability to leave home except with aid of a supportive device and/or person AND leaving the home requires a considerable and taxing effort or is medically contraindicated. Pt req the following assistanc: Walker Home Health Nursing Orders Home Health Services Order: Physical Therapy-Evaluate & Treat Home Health Infusion Therapy Line Start Date: May 10, 2021 Therapy Orders Therapy Orders: Physical Therapy Therapy Specific Orders: Gait training, Increase strength/endurance, Restore RO M Certify Stmt I certify that this patient is under my care and that I, a nurse practitioner or a physician; a assistant director of residence life working with me, had a face to face encounter that - meets the physician face to face encounter requirements with this patient as dated. DOUGLAS VALDIVIA MD May 13, 2021 09:49
--- NOTE | 2021-05-13 10:44 | Physical Therapy Daily Note ---
PT Daily Note-Current Subjective Patient up independently in room. Agrees to PT. Mental Status Patient Orientation: Normal For Age Transfers SCALE: Activities may be completed with or without assistive devices. 8-Rlofxxkysw-ypdodql completes the activity by him/herself with no assistance from a helper. 5-Set-up or Clean-up Assistance-helper sets up or cleans up; patient completes activity. [place] assists only prior to or following the activity. 4-Supervision or Touching Assistance-helper provides verbal cues and/or touching/steadying and/or contact guard assistance as patient completes activity. Assistance may be provided throughout the activity or intermittently. 3-Partial/Moderate Assistance-helper does LESS THAN HALF the effort. [place] lifts, holds or supports trunk or limbs, but provides less than half the effort. 2-Substantial/Maximal Assistance-helper does MORE THAN HALF the effort. [place] lifts or holds trunk or limbs and provides more than half the effort. 3-Fwcrpzwix-emfuzt does ALL the effort. Patient does none of the effort to complete the activity. Or, the assistance of 2 or more helpers is required for the patient to complete the activity. If activity was not attempted, code reason: 7-Patient Refused. 9-Not Applicable-not attempted and the patient did not perform the activity before the current illness, exacerbation or injury. 10-Not Attempted due to Environmental Limitations-(lack of equipment, weather restraints, etc.). 88-Not Attempted due to Medical Conditions or Safety Concerns. Sit to Lying (QC): 6 Lying to Sitting/Side of Bed(Q: 6 Sit to Stand (QC): 6 Chair/Zkl-ok-Psupf Xfer(QC): 6 Weight Bearing Right Lower Extremity: Right Weight Bearing/Tolerated Left Lower Extremity: Left Full Weight Bearing Posterolateral dislocation precautions Gait Training Does the Patient Walk?: Yes Distance: 500' Walk 10 feet (QC): 6 Walk 50 ft with 2 Turns(QC): 6 Walk 150 ft (QC): 6 Gait Assistive Device: FWW safe and functional with no deviation Exercises Seated Therapy Exercises: Long arc quads Seated Reps: 20 Assessment Current Status: Excellent Progress Patient dismissing to home with goals attained. PT Usp Goals [place] Helper Goals PT [place] Helper Goals Time Frame: May 14, 2021 Roll Left & Right (QC): 6 Sit to Lying (QC): 6 Lying-Sitting on Side/Bed(QC): 6 Sit to Stand (QC): 6 Chair/Wxw-av-Gedjq Xfer(QC): 6 Toilet Transfer (QC): 6 Walk 10 feet (QC): 6 Walk 50ft with 2 Turns (QC): 6 Walk 150 ft (QC): 6 Walking 10ft on Uneven Surface: 6 1 Step (curb) (QC): 6 4 Steps (QC): 6 PT Plan Treatment/Plan Treatment Plan: Discontinue PT, goals met Treatment Plan: Bed Mobility, Education, Functional Activity Rafat, Functional Strength, Gait, Safety, Therapeutic Exercise, Transfers Treatment Duration: May 14, 2021 Frequency: 7 times per week Estimated Hrs Per Day: .5 hour per day Patient and/or Family Agrees t: Yes Time/GCodes Time In: 816 Time Out: 826 Total Billed Treatment Time: 10 Total Billed Treatment 1 visit FA 10 min ANNE REED PT May 13, 2021 10:44
== END 2021-05-13 10:30 | disposition home health service (06) | DRG 470 ==
LOC: 4TH 06:16 → SURG 06:17 → 4TH 14:35
PROVIDERS: ADMIT Orthopaedic Surgery; ATTEND Orthopaedic Surgery
PROC: 0SR904A Replacement of Right Hip Joint with Ceramic on Polyethylene Synthetic Substitute, Uncemented, Open Approach (ICD-10-PCS; principal; 2021-05-10 08:05)
DX: M16.11 Unilateral primary osteoarthritis, right hip (principal); Z68.41 Body mass index [BMI] 40.0-44.9, adult; I10 Essential (primary) hypertension; E66.01 Morbid (severe) obesity due to excess calories; Z79.899 Other long term (current) drug therapy; Z91.048 Other nonmedicinal substance allergy status
CPT/HCPCS: 36415; 72170; 85014; 85018; 86850; 86900; 86901; 94664

== ENCOUNTER → 2021-05-25 | Outpatient (CLI) | payer OTHER ==
[~2021-05-25] MED LIST changes: +ASPI-1238 PO; +IBUP-2473 PO; +OXC5T PO
== END ==
LOC: ORTHO 09:21
PROVIDERS: ATTEND Orthopaedic Surgery
DX: Z47.89 Encounter for other orthopedic aftercare (principal); Z98.890 Other specified postprocedural states

== ENCOUNTER → 2021-06-22 | Outpatient (CLI) | payer OTHER ==
--- NOTE | 2021-06-22 11:07 | Diagnostic Imaging Report ---
INDICATION: Right hip arthroplasty. FINDINGS: Two views of the right hip show changes of total joint arthroplasty. There is satisfactory alignment. No loosening is evident. There is no fracture. IMPRESSION: Satisfactory right hip arthroplasty. Dictated by: Dictated on workstation # [id number]
== END ==
LOC: ORTHO 10:07
PROVIDERS: ATTEND Orthopaedic Surgery
DX: Z48.89 Encounter for other specified surgical aftercare (principal); Z96.641 Presence of right artificial hip joint
CPT/HCPCS: 73502

== ENCOUNTER → 2021-08-03 | Outpatient (CLI) | payer OTHER | LOC: ORTHO 09:56 | PROVIDERS: ATTEND Orthopaedic Surgery | DX: Z96.641 Presence of right artificial hip joint (principal) ==

== ENCOUNTER → 2022-05-03 | Outpatient (CLI) | payer OTHER ==
--- NOTE | 2022-05-03 18:38 | Diagnostic Imaging Report ---
PELVIS/TERRY HIPS 5> VIEWS INDICATION: Postop surveillance after bilateral hip arthroplasties COMPARISON: 06/22/2021 TECHNIQUE: AP pelvis with AP and lateral views of each hip for a total of 5 views. FINDINGS: Noncemented bilateral total hip arthroplasties have components in good alignment. No periprosthetic fracture or erosions. No abnormal migration of the femoral head components to suggest polyethylene wear. SI joints are normal in appearance. No features of sacral alar fracture. IMPRESSION: Bilateral total hip arthroplasties have no features of complication by radiography. Dictated by: Dictated on workstation # [id number]
== END ==
LOC: ORTHO 10:11
PROVIDERS: ATTEND Orthopaedic Surgery
DX: Z47.89 Encounter for other orthopedic aftercare (principal); Z96.641 Presence of right artificial hip joint; Z96.642 Presence of left artificial hip joint
CPT/HCPCS: 73523; G0463; 99213

== ENCOUNTER → 2022-09-27 | Outpatient (CLI) | payer OTHER ==
--- NOTE | 2022-09-27 15:38 | Diagnostic Imaging Report ---
EXAMINATION: Right knee radiographs, 4 views. COMPARISON: None. HISTORY: 62-year-old male, right knee pain. FINDINGS: There is severe medial compartment joint space loss of the right knee. There is a right knee joint effusion. There is no identified acute fracture. The patella is not subluxed. There is no identified acute fracture. IMPRESSION: 1. No identified acute bony abnormality of the right knee. 2. Severe medial compartment osteoarthritis with knee joint effusion. Dictated by: Dictated on workstation # [id number]
== END ==
LOC: ORTHO 12:53
PROVIDERS: ATTEND Orthopaedic Surgery
DX: M17.11 Unilateral primary osteoarthritis, right knee (principal)
CPT/HCPCS: 73564; G0463; 99213

== ENCOUNTER → 2023-01-25 | Outpatient (CLI) | payer OTHER ==
--- NOTE | 2023-01-25 15:36 | Diagnostic Imaging Report ---
INDICATION: Right hand pain. TECHNIQUE: AP, oblique, and lateral views of the right hand were obtained. FINDINGS: No fracture or acute bony abnormality is seen. There is mild diffuse degenerative change throughout the interphalangeal joints. There are cystic degenerative changes in the scaphoid and in the distal radius. IMPRESSION: Chronic changes in the right hand with no acute abnormality. Dictated by: Dictated on workstation # [id number]
== END ==
LOC: ORTHO 09:29
PROVIDERS: ATTEND Orthopaedic Surgery
DX: M19.041 Primary osteoarthritis, right hand (principal)
CPT/HCPCS: 73130; G0463; 99213

== ENCOUNTER 2023-04-17 05:29 | Outpatient (CLI) | payer OTHER ==
[~2023-04-17] VITALS: Ht 177.8 cm; Wt 127.3 kg
== END 2023-04-17 15:26 | disposition home or self-care (01) ==
LOC: PREOP 05:29
PROVIDERS: ATTEND Orthopaedic Surgery
DX: Z01.818 Encounter for other preprocedural examination (principal)

== ENCOUNTER → 2023-05-09 | Outpatient (CLI) | payer OTHER | LOC: ORTHO 09:00 | PROVIDERS: ATTEND Orthopaedic Surgery | DX: Z47.89 Encounter for other orthopedic aftercare (principal) ==

== ENCOUNTER → 2023-06-13 | Outpatient (CLI) | payer OTHER | LOC: ORTHO 09:34 | PROVIDERS: ATTEND Orthopaedic Surgery | DX: Z47.89 Encounter for other orthopedic aftercare (principal); G56.02 Carpal tunnel syndrome, left upper limb ==